=== PATIENT | female | born 1950 | race African-American/Black ===

== ENCOUNTER → 2019-07-25 | Outpatient (CLI) | payer OTHER ==
[~2019-07-25] MED LIST: CONTRAST GIVEN. MC PRN; IOHEXOL 240 MG/ML 50ML VIAL. PO ONE; IOHEXOL 300 MG/ML 100ML VIAL. IV ONE
--- NOTE | 2019-07-25 16:45 | RAD ---
EXAM: RIGHT SHOULDER 3 VIEWS. HISTORY: Right shoulder pain. COMPARISON: None. FINDINGS: No fractures are identified. Glenohumeral joint spaces and alignment are maintained. The right distal and medial clavicles appear absent. This may be a developmental finding rather than postoperative change. Overall alignment is maintained. There is a mild broad thoracic dextroscoliosis. IMPRESSION: 1. The right clavicle is either relatively hypoplastic medially and laterally, versus postoperative change. No fracture or malalignment. Electronically signed by: Allan Norman MD (07/25/2019 4:42 PM) [facility]
--- NOTE | 2019-07-25 17:21 | RAD ---
EXAM: CT ABDOMEN/PELVIS WITH CONTRAST. HISTORY: Abdominal mass. TECHNIQUE: Computed tomography of the abdomen and pelvis was performed after the intravenous administration of 75 mL Omnipaque 300. One or more of the following individualized dose reduction techniques were utilized for this examination: 1. Automated exposure control. 2. Adjustment of the mA and/or kV according to patient size. 3. Use of iterative reconstruction technique. COMPARISON: None. FINDINGS: Lung windows through the visualized portions of the bases reveal mild atelectasis. Bone windows reveal no suspicious lesions. A complex solid mass within the false pelvis and lower abdomen measures 11.4 x 10.2 cm. This may arise from the left adnexa. The right adnexa demonstrates no clear mass. A hypoattenuating mass within the left aspect of the myometrium measures 2.6 x 1.9 cm and is consistent with a fibroid. There are no pathologically enlarged lymph nodes. Paracolic gutter on image 40 measures 2.4 x 1.6 cm. This is indeterminate but may represent a small lipoma or prominent epiploic appendage. There is no ascites. No peritoneal masses are seen. The liver, gallbladder, pancreas, adrenal glands, spleen and adrenal glands are unremarkable. IMPRESSION: 1. A 11.4 cm cystic and solid mass within the midline lower abdomen and false pelvis may arise from the left adnexa. Ovarian malignancy is the primary concern in a postmenopausal patient. Gynecologic consultation is recommended. 2. No clear metastatic disease identified. 3. 2.6 cm myometrial fibroid. 4. A fat density well-defined mass just lateral to the right colon may represent a prominent epiploic appendage or a lipoma. Comparison with any available prior studies could assess stability. Electronically signed by: Allan Normna MD (07/25/2019 5:18 PM) [facility]
== END | disposition home or self-care (01) ==
LOC: CT 14:15
PROVIDERS: ATTEND Internal Medicine
DX: J98.11 Atelectasis (principal); M41.84 Other forms of scoliosis, thoracic region; D26.1 Other benign neoplasm of corpus uteri; Z78.0 Asymptomatic menopausal state
CPT/HCPCS: 73030; 74177; Q9966; Q9967

== ENCOUNTER → 2020-05-26 | Outpatient (CLI) | payer OTHER ==
--- NOTE | 2020-05-26 15:22 | RAD ---
DATE: 05/26/2020 2:09 PM EXAM: MAMMO JOSIAH SCREENING BILATERAL HISTORY: Screening COMPARISON: None available. This will serve as a new baseline. Bilateral CC and MLO views of the breasts were performed. Bilateral breast tomosynthesis was performed in CC and MLO projections. This study was interpreted with the benefit of Computerized Aided Detection (CAD). FINDINGS: Breast Density: SCATTERED The breast parenchyma shows scattered fibroglandular densities. Breast parenchyma level B No suspicious masses, microcalcifications or architectural distortion is present to suggest malignancy in either breast. The visualized axillae are unremarkable. IMPRESSION: No mammographic evidence of malignancy. BI-RADS CATEGORY: 1 NEGATIVE RECOMMENDED FOLLOW-UP: 12M 12 MONTH FOLLOW-UP Annual screening mammography is recommended, unless clinically indicated sooner based on symptoms or change in physical exam. PQRS compliance statement: Patient information was entered into a reminder system with a target due date for the next mammogram. Mammography is a sensitive method for finding small breast cancers, but it does not detect them all and is not a substitute for careful clinical examination. A negative mammogram does not negate a clinically suspicious finding and should not result in delay in biopsying a clinically suspicious abnormality. "Our facility is accredited by the [employer] Mammography Program."
== END ==
LOC: MAMMO 14:06
PROVIDERS: ATTEND Internal Medicine
DX: Z12.31 Encounter for screening mammogram for malignant neoplasm of breast (principal)
CPT/HCPCS: 77063; 77067

== ENCOUNTER → 2020-10-20 | Day surgery (SDC) | payer OTHER ==
[~2020-10-20] MED LIST changes: +AMLO-186 PO; -CONTRAST GIVEN. MC PRN; -IOHEXOL 240 MG/ML 50ML VIAL. PO ONE; -IOHEXOL 300 MG/ML 100ML VIAL. IV ONE; +IV RINGERS,LACTATED 1000ML 1,000 ML IV SCH; +LIDOCAINE 2% PF 5 ML VIAL. ONE; +METO50TA6 PO; +PROPOFOL 10 MG/ML (20ML) VIAL. IV ONE; +QUIN20TA17 PO
[2020-10-20 08:15] VITALS: BP 118/66
--- NOTE | 2020-10-25 11:25 | PATHOLOGY ---
[facility] Accession Number: [id number] . 01 Material submitted: . esophagus - DISTAL ESOPHAGUS BIOPSY. Modifiers: distal . 01 Clinical history: . EGD, COLONOSCOPY ANEMIA, HISTORY OF POLYPS . 02 Diagnosis: Esophagus "distal", biopsy: - Esophageal squamous and gastric cardia mucosa with features of reflux esophagitis and chronic inflammation. - Negative for intestinal metaplasia, dysplasia and malignancy. (KEMK:jakub; 10/22/2020) R 10/25/2020 1022 Local . 02 Electronically signed: . James Richter MD, Pathologist NPI- [id number] . 01 Gross description: . The specimen is received in formalin, labeled "Molly Reddy", "distal esophagus biopsies" on the container and "distal esophagus biopsy" on the requisition. Received are multiple segments of pale white soft tissue ranging in size from 0.1 cm to 0.3 cm. The specimen is entirely submitted in cassette A1.([facility]; 10/21/2020) IRENE/LULY 10/21/2020 0904 Local . 02 Pathologist provided ICD-10: Z12.11, D64.9, Z86.010 . 02 CPT . 664349 Specimen Comment: A courtesy copy of this report has been sent to [phone], [phone] Specimen Comment: [id number] Specimen Comment: Report sent to DR HEARN / DR CLINTON Performed at: 01 [facility] [address], [place] [id number] MD Casper Forde MD Phone: [phone] Performed at: 02 [facility] [address] [place], [place] [id number] MD Juan Barboza MD Phone: [phone]
== END | disposition home or self-care (01) ==
LOC: ENDOS 06:24
PROVIDERS: ATTEND Internal Medicine Gastroenterology
DX: D50.9 Iron deficiency anemia, unspecified (principal); K21.00 Gastro-esophageal reflux disease with esophagitis, without bleeding; K31.89 Other diseases of stomach and duodenum; R58 Hemorrhage, not elsewhere classified; K64.0 First degree hemorrhoids; I10 Essential (primary) hypertension; K21.9 Gastro-esophageal reflux disease without esophagitis; M19.90 Unspecified osteoarthritis, unspecified site; F41.9 Anxiety disorder, unspecified; Z79.899 Other long term (current) drug therapy; Z98.890 Other specified postprocedural states; Z20.822 Contact with and (suspected) exposure to COVID-19
CPT/HCPCS: 43239; 45378; 87426; J2704; 88305

== ENCOUNTER → 2021-06-01 | Outpatient (CLI) | payer OTHER ==
[2020-10-20 08:15] VITALS: BP 118/66
[~2021-06-01] MED LIST changes: -IV RINGERS,LACTATED 1000ML 1,000 ML IV SCH; -LIDOCAINE 2% PF 5 ML VIAL. ONE; -PROPOFOL 10 MG/ML (20ML) VIAL. IV ONE
--- NOTE | 2021-06-01 16:32 | RAD ---
Bilateral digital screening 2-D and 3-D (digital breast tomosynthesis) mammogram: Reason for examination: Routine screening. Comparison: Mammogram from 05/26/2020. Interpretation was made with the benefit of CAD. FINDINGS: Breast density: Category B. There are scattered areas of fibroglandular density. No suspicious breast mass, malignant appearing calcifications, or architectural distortion is seen. IMPRESSION: No evidence of malignancy. Assessment: BI-RADS 1. Negative. Recommendation: Routine screening mammograms. The patient will receive a letter with the results in the mail. Patient information will be entered i nto the mammography reminder system with a target recall date for the next mammogram. A reminder manuel er will be generated. Electronically signed by: Riri Pineda MD (06/01/2021 4:30 PM) [id number]
== END ==
LOC: MAMMO 15:22
PROVIDERS: ATTEND Internal Medicine
DX: Z12.31 Encounter for screening mammogram for malignant neoplasm of breast (principal)
CPT/HCPCS: 77063; 77067

== ENCOUNTER → 2021-06-21 | Outpatient (CLI) | payer OTHER ==
[2020-10-20 08:15] VITALS: BP 118/66
[~2021-06-21] MED LIST changes: +GADOTERATE 5 MMOL/10ML VIAL. IVP ONE
--- NOTE | 2021-06-21 16:18 | KCIC ---
EXAM: MRI pelvis with and without contrast. HISTORY: Pelvic mass. TECHNIQUE: MRI of the pelvis was performed before and after the intravenous administration of 10 mL C lariscan. COMPARISON: CT 07/25/2019. FINDINGS: A mass superiorly within the false pelvis extends into the lower abdomen and measures 13 x 10 x 9 cm. Within it, there is a higher T2 signal region that measures 9.7 x 8.0 x 9.2 cm. This has i ncreased from approximately 6.2 cm on the prior study. The internal component has cystic nonenhancing regions, but there is enhancing tissue that demonstrates diffusion restriction along its periphery. The origin of the mass is unclear. It may be exophytic arising from the superior aspect of the uterin e fundus. The left ovary is not otherwise visualized and is another potential origin. The right ovary is visualized in the right hemipelvis. The uterus is anteverted. The endometrial stripe measures 5 mm. The uterine junctional zone is at the upper limits of normal thickness at 1.2 cm. It contains a few small cystic foci consistent with julio omyosis. A myometrial fibroid posteriorly measures 1.8 cm. Nabothian cysts are noted at the cervix. There is a small amount of free pelvic fluid. There are no clearly pathologically enlarged lymph node s within this [id number]. IMPRESSION: 1. A 13 x 10 x 9 cm mass may arise from either the left adnexa or the superior aspect of the uterine fundus. An internal 10 cm region with different signal characteristics has increased in size and demo nstrates diffusion restriction. Malignancy of ovarian origin or malignant degeneration within a uteri ne fibroid are not excluded. Ongoing gynecologic management is recommended. 2. 18 mm myometrial fibroid. 3. Findings consistent with uterine adenomyosis. 4. The endometrial stripe is mildly thickened in a postmenopausal patient at 5 mm. Ongoing follow-up is recommended. Electronically signed by: Allan Norman MD (06/21/2021 4:15 PM) [id number]
== END ==
LOC: KCIC MRI 13:11
PROVIDERS: ATTEND Obstetrics & Gynecology
DX: R19.09 Other intra-abdominal and pelvic swelling, mass and lump (principal); R93.89 Abnormal findings on diagnostic imaging of other specified body structures; D26.1 Other benign neoplasm of corpus uteri; N85.4 Malposition of uterus
CPT/HCPCS: 72197; 82565; A9575